=== PATIENT | female | born 1980 | race Asian ===

== ENCOUNTER 2019-01-24 14:57 | Observation (INO) | payer OTHER ==
[2019-01-24] MEDS ORDERED: Ondansetron PF 4 MG/2 ML Vial ONE (15:27)
[2019-01-24] MEDS ORDERED: Ketorolac Tromethamine 30 MG/ML VIAL ONE (15:27)
[2019-01-24] MEDS ORDERED: Famotidine/PF 20 mg/2ml Vial ONE (15:27)
[2019-01-24 15:40] LABS: #Basophils 0.1 thou/uL (0.0-0.2); #Eosinphils 0.1 thou/uL (0.0-0.7); #Lymphocytes 2.2 thou/uL (1.20-3.40); #Monocytes 0.3 thou/uL (0.11-0.59); #Neutrophils 4.1 thou/uL (1.40-6.50); %Basophils 0.7 % (0.0-1.0); %Lymphocytes 31.9 % (21.0-51.0); %Monocytes 4.7 % (0.0-10.0); %Neutrophils 60.7 % (42.0-75.0); ALT (SGPT) 15 U/L (8-55); AST (SGOT) 21 U/L (5-34); Albumin 3.9 g/dL (3.5-5.0); Alkaline Phosphatase 104 U/L (40-150); Anion Gap 15 mmol/L (10-20); Anisocytosis SLIGHT = 6-15 cells (100X) (0-5/hpf); BUN (Urea Nitrogen) 11 mg/dL (7.0-18.7); Bilirubin, Total 0.6 mg/dL (0.2-1.2); CK (CPK) 58 U/L (29-168); Calc. Creatinine Clearance 0 mL/min (70-130); Calcium 9.8 mg/dL (7.8-10.44); Carbon Dioxide 25 mmol/L (22-29); Chloride 105 mmol/L (98-107); Estimated GFR-MDRD Greater than 90; Giant Platelets SLIGHT; Globulin 3.9 g/dL (2.4-3.5); Glucose 133 mg/dL (70-105); Hemoglobin 11.5 g/dL (12.0-16.0); Hypochromia SLIGHT = 6-15 cells (100X) (0-5/hpf); Large Platelets SLIGHT; MDiff Complete? YES; Macrocytosis SLIGHT = 6-15 cells (100X) (0-5/hpf); Mean Corpuscular HGB CONC 31.8 g/dL (32.0-36.0); Mean Corpuscular Hemoglobin 26.5 pg (27.0-31.0); Mean Corpuscular Volume 83.4 fL (78.0-98.0); Microcytosis SLIGHT = 6-15 cells (100X) (0-5/hpf); Platelet Count 95 thou/uL (130-400); Platelet Morphology Comment Appears Decreased; Potassium 3.7 mmol/L (3.5-5.1); Protein, Total 7.8 g/dL (6.0-8.3); RBC Distribution Width 15.8 % (11.5-14.5); Red Blood Cell (RBC) Count 4.35 mill/uL (4.20-5.40); Sodium 141 mmol/L (136-145); Stomatocytes SLIGHT = 2-5 cells (100X) (0-1/hpf); White Blood Cell (WBC) Count 6.8 thou/uL (4.8-10.8)
[2019-01-24 15:48] LABS: Pregnancy Test - Urine (BHCG) Negative (Negative); Pregu Control Background? CLEAR/WHITE (CLR/WHITE); Pregu Control Bar Appear? YES (CONTROL BAR); Specific Gravity 1.025 (1.002-1.036)
[2019-01-24 15:51] LABS: Bilirubin Negative (Negative); Blood, Urine Negative (Negative); Clarity Slightly Cloudy (Clear); Glucose, Urine (Dipstick) Negative (Negative); Leukocyte Negative (Negative); Nitrite Negative (Negative); Protein, Urine (Dipstick) 30 mg/dL (Neg-Trace); Urobilinogen 0.2 mg/dL (Less than 2)
[2019-01-24 15:53] LABS: Bacteria/HPF 2+ HPF (None Seen); RBC/HPF 0-3 HPF (0-3)
[2019-01-24 15:54] LABS: Mean Platelet Volume 31.8 fL (7.4-10.4)
--- NOTE | 2019-01-24 16:20 | ULT ---
Right upper quadrant ultrasound: 01/24/2019 COMPARISON: None HISTORY: Right upper quadrant pain TECHNIQUE: Multiplanar grayscale sonographic imaging of the right upper quadrant provided. FINDINGS: The imaged pancreas appears grossly unremarkable. The distal body and tail are obscured by bowel gas. Left lobe of liver partially obscured by bowel gas as well. Imaged hepatic parenchyma demonstrates no focal lesion. Portions of the right lobe of the liver are obscured by bowel gas as well. No gallbladder wall thickening or pericholecystic fluid. Right kidney measures 11.5 cm in craniocaudal dimension and demonstrates no stone, hydronephrosis, or mass. There are a few tiny stones within the gallbladder lumen measuring in the 7 mm range. The brake specialist reports a negative Reyes's sign. The common bile duct is dilated, measuring just over 9 mm. IMPRESSION: Cholelithiasis with dilated common bile duct. Findings may signify biliary obstruction on the basis of nonvisualized choledocholithiasis. Correlation with LFTs and consideration for GI consultation is advised. No sonographic evidence of acute cholecystitis.
--- NOTE | 2019-01-24 16:22 | RAD ---
2 views chest: 01/24/2019 COMPARISON: None HISTORY: Epigastric pain, right upper quadrant pain, nausea FINDINGS: Lungs are clear. Heart and mediastinal contours are unremarkable. IMPRESSION: No acute findings.
[2019-01-24] MEDS ORDERED: Sodium Chloride 0.9% 1,000 ML IV SCH (19:15)
[2019-01-24 20:00] VITALS: BMI 34.3
[2019-01-24] MEDS ORDERED: Dextrose 5% in Water 1,000 ML IV PRN (20:05)
[2019-01-24] MEDS ORDERED: Insulin Regular 300 UNITS/3 ML VIAL SC PRN (20:05)
[2019-01-24] MEDS ORDERED: Dextrose 50% Abboject 50 ML SYRINGE IVP PRN (20:05)
[2019-01-24] MEDS ORDERED: Morphine 4 MG/ML VIAL SLOW IVP PRN (20:06)
[2019-01-24] MEDS ORDERED: Morphine 2 MG/ML SYRINGE SLOW IVP PRN (20:06)
[2019-01-24] MEDS ORDERED: Acetaminophen 1,000 MG in Premix Bag 1 BAG IVPB PRN (20:07)
[2019-01-24] MEDS ORDERED: Ondansetron PF 4 MG/2 ML Vial SLOW IVP PRN (20:07)
[2019-01-24] MEDS: Sodium Chloride 0.9% 1,000 ML IV SCH (22:42)
[2019-01-24] MEDS: Piperacillin/Tazobactam 3.375 GM in Sodium Chloride 0.9% 100 ML IVPB SCH (22:42)
[2019-01-25] MEDS: Piperacillin/Tazobactam 3.375 GM in Sodium Chloride 0.9% 100 ML IVPB SCH ×3 (02:42→14:56)
[2019-01-25] MEDS: Sodium Chloride 0.9% 1,000 ML IV SCH ×2 (05:30→14:17)
--- NOTE | 2019-01-25 07:37 | HP ---
CHIEF COMPLAINT: Right upper quadrant abdominal pain. HISTORY OF PRESENT ILLNESS: This is a 38-year-old female with a 24-hour history of mid to right upper quadrant abdominal pain radiating to back associated with nausea and vomiting. No fevers or chills. No change in bowel habits. Ultrasound showed cholelithiasis and an enlarged common bile duct. She recently is in the end of September. PAST MEDICAL HISTORY: She is an insulin-dependent diabetic. She has morbid obesity. PAST SURGICAL HISTORY: section x2. MEDICATIONS: 1. NovoLog. 2. Vitamin D. 3. vitamins. 4. Folate. ALLERGIES: NO KNOWN DRUG ALLERGIES. SOCIAL HISTORY: She is , homemaker. No tobacco or alcohol. FAMILY HISTORY: Liver cancer and diabetes. PHYSICAL EXAMINATION: VITAL SIGNS: Temperature 97.8, pulse 68, and blood pressure 136/83. GENERAL: Well-developed, well-nourished female, in no apparent distress. HEENT: Unremarkable. LUNGS: Clear. HEART: Regular rate and rhythm. ABDOMEN: Soft, nondistended, and nontender. EXTREMITIES: Unremarkable. LABORATORY DATA: White count 6.8, H and H of 11 and 36, and platelet count of 95. Electrolytes, glucose is 120. LFTs are normal. ASSESSMENT: Severe biliary colic with enlarged common duct. PLAN: Laparoscopic cholecystectomy with cholangiogram. CONSENT: I have discussed planned procedure as well as risk of bleeding, infection, injury to bile duct, injury to bowel, need to open, she understands and gives informed consent. Job ID: [id number]
[2019-01-25] MEDS ORDERED: Morphine 4 MG/ML VIAL ONE (08:21)
[2019-01-25] MEDS ORDERED: Fentanyl 100 MCG/2 ML VIAL ONE ×2 (08:21→10:08)
[2019-01-25] MEDS ORDERED: Bupivacaine/Epinephrine 0.25% 30 ML VIAL ONE (08:22)
[2019-01-25] MEDS ORDERED: Promethazine HCl 25 MG/ML VIAL IM PRN ×2 (08:29→09:57)
[2019-01-25] MEDS ORDERED: Ondansetron HCl/PF 4 MG/2 ML Vial IVP PRN (08:29)
[2019-01-25] MEDS ORDERED: Promethazine HCl 25 MG/ML VIAL SLOW IVP PRN (08:29)
[2019-01-25] MEDS ORDERED: Piperacillin/Tazobactam 3.375 GM VIAL ONE (08:31)
[2019-01-25] MEDS ORDERED: Sodium Chloride 0.9% 100 ML ONE (08:32)
[2019-01-25] MEDS ORDERED: Iothalamate Meglumine 60% 50 ML VIAL FS ONE (09:00)
[2019-01-25] MEDS ORDERED: Calcium Carbonate 500 MG ChewTAB PO PRN (09:57)
[2019-01-25] MEDS ORDERED: Ondansetron PF 4 MG/2 ML Vial IVP PRN (09:57)
[2019-01-25] MEDS ORDERED: Dextrose 50% Abboject 50 ML SYRINGE SLOW IVP PRN (09:57)
[2019-01-25] MEDS ORDERED: Dextrose 5% in Water 1,000 ML IV PRN (09:57)
[2019-01-25] MEDS ORDERED: hydrALAZINE 20 MG/ML VIAL SLOW IVP PRN (09:57)
[2019-01-25] MEDS ORDERED: Mag-Al 1200 mg/1200 mg/30 ML UDCUP PO PRN (09:57)
[2019-01-25] MEDS ORDERED: HYDROcodone/Acetaminophen 10/325 mg Tablet PO PRN ×2 (09:57)
[2019-01-25] MEDS ORDERED: Sodium Chloride 0.9% 1,000 ML IV SCH (10:00)
--- NOTE | 2019-01-25 10:52 | OP ---
DATE OF PROCEDURE: 01/25/2019 PREOPERATIVE DIAGNOSIS: Acute cholecystitis with elevated liver function. PROCEDURE PERFORMED: Laparoscopic cholecystectomy with intraoperative cholangiogram. INDICATIONS: This is a 38-year-old female, who is 2 months' , who has been having severe right upper quadrant pain, low-grade fever, elevated liver functions, and an ultrasound showing gallstones. FINDINGS: Cholangiogram showed no filling defects. Free flow into the duodenum. She had quite a bit of edema in the wall of the gallbladder, it was very distended. DESCRIPTION OF PROCEDURE: After informed consent was obtained, the patient was taken to the operating room, given general endotracheal anesthesia, placed in the supine position. Abdomen was prepped and draped in usual fashion. Local anesthesia was infiltrated subcutaneously and deep and a 12 mm incision was performed subumbilical. Subcu divided sharply. The fascia was grasped and 2 stay sutures of 0 Vicryl placed through each side of midline. Midline was incised. Digital palpation revealed no local adhesions. A blunt 12 mm trocar was inserted. Pneumoperitoneum was created to a pressure of 15 mmHg. A 0 degree laparoscope was inserted under direct vision. Three 5-mm ports were placed subcostally. The gallbladder was very distended. It was punctured with an aspirating needle and emptied of bile approximately 120 mL. Then, the gallbladder was grasped and advanced superiorly. The peritoneum was dissected distally to expose the cystic duct artery in critical view. The clip was placed at the base of the gallbladder and an Arrow cholangiocatheter inserted. Intraoperative cholangiogram showed free flow into the duodenum. No filling defects. The duct was triply ligated and divided. The artery was triply ligated and divided. The gallbladder removed from its fossa utilizing electrocautery, removed from the abdomen in an endosac through the umbilical port. Hemostasis was assured. Trocars and retractors were removed. The fascia was closed with interrupted 0 Vicryl suture. The skin was closed with interrupted 4-0 Rapide. Dermabond applied. The patient tolerated the procedure well and was transferred to Recovery in good condition. Sponge and needle count verified correct x2. Job ID: [id number]
[2019-01-25 11:39] VITALS: TEMP 97.6
[2019-01-25] MEDS ORDERED: Ketorolac Tromethamine 30 MG/ML VIAL IVP SCH ×2 (12:00→16:00)
[2019-01-25 16:18] VITALS: BP 136/76
[2019-01-25] MEDS ORDERED: Famotidine/PF 20 mg/2ml Vial SLOW IVP SCH (21:00)
[2019-01-25] MEDS ORDERED: Famotidine 20 MG TAB PO SCH (21:00)
[2019-01-26] MEDS ORDERED: Enoxaparin Sodium 40 MG/0.4 ML SYRINGE SC SCH (09:00)
== END 2019-01-25 17:00 | disposition home or self-care (01) ==
LOC: SCSER 14:57 → SURG A 17:38
PROVIDERS: ADMIT Surgery; ATTEND Surgery
PROC: 0FT44ZZ Resection of Gallbladder, Percutaneous Endoscopic Approach (ICD-10-PCS; principal; 2019-01-25)
PROC: BF121ZZ Fluoroscopy of Gallbladder using Low Osmolar Contrast (ICD-10-PCS; 2019-01-25)
DX: K80.66 Calculus of gallbladder and bile duct with acute and chronic cholecystitis without obstruction (principal); K82.8 Other specified diseases of gallbladder; K83.8 Other specified diseases of biliary tract; R94.5 Abnormal results of liver function studies; E11.9 Type 2 diabetes mellitus without complications; E66.01 Morbid (severe) obesity due to excess calories; Z68.34 Body mass index [BMI] 34.0-34.9, adult; Z79.4 Long term (current) use of insulin; Z79.899 Other long term (current) drug therapy
CPT/HCPCS: 36416; 47532; 71046; 76705; 80053; 81003; 81015; 81025; 82550; 84484; 85025; 88304; 93005; 96361; 96365; 96366; 96374; 96375; G0378; J1610; J1815; J1885; J2270; J2405; J2543; J3010; J3490; S0028